=== PATIENT | male | born 1975 | race Hispanic/Latino ===

== ENCOUNTER 2021-03-11 01:15 | Emergency (ER) | payer OTHER ==
[~2021-03-11] VITALS: Ht 172.7 cm; Wt 74.8 kg
[2021-03-11 01:31] VITALS: BP 130/80
[2021-03-11] MEDS ORDERED: BENZ-39 PO (02:48)
[2021-03-11] MEDS ORDERED: AZIT250T9 PO (02:48)
[2021-03-11] MEDS ORDERED: ALBU8.5H8 IH (02:48)
[2021-03-11] MEDS ORDERED: AZITHROMYCIN 250 MG TABLET PO ONE (03:00)
[2021-03-11] MEDS ORDERED: DEXAMETHASONE 4 MG TAB PO ONE (03:00)
== END 2021-03-11 02:55 | disposition home or self-care (01) ==
LOC: EDH 01:15
DX: U07.1 COVID-19 (principal); J40 Bronchitis, not specified as acute or chronic; Z79.899 Other long term (current) drug therapy; Z98.890 Other specified postprocedural states
CPT/HCPCS: 87635; 87804 ×2; 87880; 99283; C9803; J8540

== ENCOUNTER 2024-10-27 12:38 | Emergency (ER) | payer SELFPAY ==
[~2024-10-27] VITALS: Ht 172.7 cm; Wt 72.6 kg
[~2024-10-27 12:38] MED LIST: ALBU8.5H8 IH; AZIT250T9 PO; BENZ-39 PO
[2024-10-27 12:54] VITALS: BP 155/90; PULSE 84; RESP 16; TEMP 98; O2SAT 97
[2024-10-27] MEDS ORDERED: NAPR-1194 PO (13:14)
--- NOTE | 2024-10-27 13:14 | ERN ---
General Chief Complaint: Upper Extremity Pain/Injury Stated Complaint: RIGHT ARM PAIN Time Seen by MD: 12:40 Source: patient History of Present Illness Initial Comments Patient is a 49-year-old male coming in complaining of right wrist pain. Per patient he was moving some furniture believes he might have hit his right wrist with a drawer. Allergies: Coded Allergies: No Known Drug Allergies (Unverified Allergy, Unknown, 03/11/21) Home Meds Active Scripts Albuterol Sulfate (Proair Hfa) 8.5 Gm Hfa.aer.ad, 2 PUFF IH Q4HPRN, #1 INHALER 0 Refills Prov:SIRI KOTHARI MD 03/11/21 Benzonatate (Tessalon Perles) 100 Mg Cap, 100 MG PO TIDP, #15 CAP 0 Refills Prov:SIRI KOTHARI MD 03/11/21 Azithromycin (Azithromycin) 250 Mg Tablet, 250 MG PO DAILY for 4 Days, #4 TAB 0 Refills Prov:SIRI KOTHARI MD 03/11/21 Past Medical History Past Medical History: Asthma Past Surgical History: Other Surgical History Other: JAW SX; RT ANKLE SX Social History Social History: Negative ROS Dictation CONSTITUTIONAL: No chills, no fever, no weakness, no diaphoresis, no malaise. HEAD/FACE: No signs of trauma. EENT: No eye pain, no blurred vision, no tearing, no double vision, no ear pain, no ear discharge, no nose pain, no nasal congestion, no throat pain, no throat swelling, no mouth pain. RESPIRATORY: No cough, no orthopnea, no SOB, no stridor, no wheezing. CARDIOVASCULAR: No chest pain, no edema, no palpitations, no syncope. GASTROINTESTINAL/ABDOMINAL: No abdominal pain, no constipation, no diarrhea, no nausea, no vomiting. GENITOURINARY: No abnormal discharge, no dysuria, no frequent urination, no hematuria. No complaints of pain in the genitals. MUSCULOSKELETAL: No back pain, no gout, joint pain, no joint swelling, muscle pain, no muscle stiffness, no neck pain. INTEGUMENTARY: No change in color, no change in hair/nails, no dryness, no lesion, no lumps, no rash. NEUROLOGICAL/PSYCH: No anxiety, not depressed, no emotional problem, no headache, no numbness, no pre-existing deficit, no history of seizures, no tremors, no weakness. HEMATOLOGIC/LYMPHATIC: Not anemic, no history of blood clots, no apparent bleeding, no bruising, glands not swollen. All Systems Negative, Except as Noted. Physical Exam Physical Exam Dictation VITAL SIGNS: Reviewed. GENERAL APPEARANCE: Alert, oriented x3, no acute distress, obese. HEAD AND FACE: Non-traumatic. EYES: PERRL, pink conjunctivas, eyelid no trauma, anterior chamber clear. EARS: Pinnas intact and no signs of trauma or erythema. Ear canals clear and no discharge. TMs no erythema. NOSE: No discharge, no bleeding. OROPHARYNX: Mouth normal, teeth no caries, tongue pink. Pharynx clear, no erythema. Tonsils no exudates, no abscesses noted. Mucous membrane moist. NECK: Supple, non-tender, no thyromegaly, no masses, no JVD, no bruits. BREAST: Deferred. CHEST: No tenderness, no crepitus, no paradoxical movement, no retractions. LUNGS: Clear, well-ventilated, symmetric, no rales, no wheezing, no rhonchi, no stridor, good breath sounds bilaterally. HEART: Regular rate, regular rhythm, no murmur, no gallops. VASCULAR: No peripheral edema. ABDOMEN: Soft, positive bowel sounds, nondistended, no guarding, nontender, no rebound, no masses no hepatomegaly, no splenomegaly, no Freitas's sign, no hernias. RECTAL: Deferred. GENITAL: Deferred. NEUROLOGICAL: Normal speech, gross motor function intact, gross sensory function intact. MUSCULOSKELETAL: Neck nontender, full range of motion, back nontender, full range of motion. EXTREMITIES: Nontender, full range of motion. Right wrist pain on palpation, pain on flexion and extension SKIN: Color pink, dry, no turgor, no rash, no lacerations, no abrasions, no contusions. LYMPHATICS: Deferred. Results Laboratory and Microbiology Labs Reviewed?: Yes EKG/XRAY/US/CT/MRI X-RAY Comment Right wrist [id number] fracture MDM MDM: Differential diagnosis: Wrist fracture, wrist sprain Rationale: Tests considered and ordered secondary to shared decision making include: Previous outside records reviewed: Old ER visits. Risk of complication and/or morbidity or mortality of patient management: None Medications-Per medication reconciliation Need for hospitalization: Patient does not meet criteria for hospitalization. Need for emergency major/minor surgery: No There are no social concerns with this patient. Patient is a 49-year-old male coming in complaining of right wrist pain. X-ray disclose a radial head fracture minimal displaced. Patient we will be discharged with right wrist splint and sling. I did advised him appropriate follow up with PCP for long-term management. ED Course Orders Procedure Category Date Status Time Wrist Comp 3+Vws Rt RAD 10/27/24 Taken 12:40 Acetaminophen 500mg PHA 10/27/24 Complete Tab (Tylenol 500mg T 13:00 Current Medications Medications (Trade) Dose Ordered Sig/Sparkle Route PRN Reason Start Time Stop Time Status Last Admin Dose Admin Acetaminophen (TYLenol 500MG TAB) 500 mg ONCE ONCE PO 10/27/24 13:00 10/27/24 13:01 DC 10/27/24 12:59 Vital Signs Date Time Temp Pulse Resp B/P (MAP) Pulse Ox O2 Delivery O2 Flow Rate FiO2 10/27/24 12:54 98.1 84 16 155/90 97 Room Air* 0 21 10/27/24 12:39 98.1 84 16 155/90 97 Room Air DX & DISP Disposition: Discharge Departure Impression: Primary Impression: Right radial fracture Condition: Stable Scripts Naproxen (Naproxen) 500 Mg Tablet 1 TAB PO BID for pain for 7 Days, #14 TAB 0 Refills Prov: MICHELLE WALLACE MD 10/27/24 Additional Instructions: FOLLOW-UP WITH PRIMARY CARE PROVIDER IN 1 TO 2 DAYS. TAKE MEDICATIONS DIRECTED HERE IN THE EMERGENCY ROOM. OKAY TO CONTINUE HOME MEDICATIONS UNLESS OTHERWISE DISCUSSED DURING YOUR VISIT IN THE EMERGENCY ROOM TODAY. RETURN TO YOUR NEAREST EMERGENCY ROOM IF SYMPTOMS WORSEN OR IF THERE IS NO IMPROVEMENT. CALL 911 IF YOU NEED IMMEDIATE ASSISTANCE. TAKE TYLENOL [id number] NEEDED AND IF NO CONTRAINDICATIONS ARE PRESENT. INCREASE ORAL HYDRATION. A WOUND CULTURE OR URINE CULTURE WAS ORDERED HERE IN THE EMERGENCY ROOM DEPARTMENT PLEASE FOLLOW-UP WITH PRIMARY CARE PROVIDER AND ADVISE THEM TO GET REPORTS FROM OUR FACILITY. IF YOU HAD ANY SHWETA WRAP/SPLINTS THAT WERE APPLIED HERE, PLEASE DO NOT REMOVE THEM UNTIL YOU SEE YOUR PRIMARY CARE OR SPECIALTY. Referrals: Referrals: SELF,REFERRAL (PCP) JUANA STEEN MD Time of Disposition: 13:13 MICHELLE WALLACE MD Oct 27, 2024 13:14
--- NOTE | 2024-10-27 13:35 | HMCIMG ---
EXAM: CR right Wrist, 3 View. CLINICAL HISTORY: fall COMPARISON: None provided. FINDINGS: Suspected nondisplaced fracture of the distal radius. Recommend CT imaging for confirmation. Joint spaces remain anatomically aligned. IMPRESSION: 1. Suspected nondisplaced fracture of the distal radius. Recommend CT imaging for confirmation. /Amity
--- NOTE | 2024-10-27 13:40 | NUR ---
RT ARM SPLINTED AND SLING APPLIED, PT TOLERATED WELL
== END 2024-10-27 13:40 | disposition home or self-care (01) ==
LOC: EDH 12:38
DX: S52.501A Unspecified fracture of the lower end of right radius, initial encounter for closed fracture (principal); J45.909 Unspecified asthma, uncomplicated; W22.8XXA Striking against or struck by other objects, initial encounter; Y93.89 Activity, other specified; Y92.89 Other specified places as the place of occurrence of the external cause; Y99.8 Other external cause status
CPT/HCPCS: 29125; 73110; 99283